=== PATIENT | male | born 2000 | race Caucasian/White ===

== ENCOUNTER 2021-03-01 21:01 | Emergency (ER) | payer OTHER ==
[~2021-03-01] VITALS: Ht 177.8 cm; Wt 63.5 kg
[2021-03-01] MEDS ORDERED: DOXYCYCLINE HY100 MG PO (23:00)
[2021-03-01] MEDS ORDERED: IBU600 MG PO (23:00)
== END 2021-03-01 23:17 | disposition home or self-care (01) ==
LOC: ED 21:01
DX: L08.9 Local infection of the skin and subcutaneous tissue, unspecified (principal)
CPT/HCPCS: 73660; 99283-25; A9270